=== PATIENT | female | born 1995 | race Caucasian/White ===

== ENCOUNTER 2022-06-19 10:28 | Outpatient (CLI) | payer BC | END 2022-06-19 10:29 | disposition home or self-care (01) | LOC: BICRAD 10:28 | PROVIDERS: ATTEND Family Medicine | DX: M25.512 Pain in left shoulder (principal) ==

== ENCOUNTER 2022-10-31 12:26 | Outpatient (CLI) | payer BC | END 2022-10-31 12:27 | disposition home or self-care (01) | LOC: SCSMRI 12:26 | PROVIDERS: ATTEND Family Medicine | DX: R79.89 Other specified abnormal findings of blood chemistry (principal) | CPT/HCPCS: 70553 ==

== ENCOUNTER 2023-06-24 17:21 | Emergency (ER) | payer BC ==
[2023-06-24 18:06] LABS: #Basophils 0.1 thou/uL (0.0-0.2); #Eosinphils 0.1 thou/uL (0.0-0.7); #Monocytes 0.4 thou/uL (0.11-0.59); #Neutrophils 5.4 thou/uL (1.40-6.50); %Basophils 0.8 % (0.0-1.0); %Eosinophils 0.9 % (0.0-10.0); %Lymphocytes 23.9 % (21.0-51.0); %Neutrophils 69.1 % (42.0-75.0); Hematocrit 39.4 % (36.0-47.0); Hemoglobin 13.2 g/dL (12.0-16.0); Mean Corpuscular HGB CONC 33.5 g/dL (32.0-36.0); Mean Corpuscular Hemoglobin 29.5 pg (27.0-31.0); Mean Corpuscular Volume 87.9 fl (78.0-98.0); Mean Platelet Volume 10.3 fL (7.4-10.4); Platelet Count 280 10x3/uL (130-400); RBC Distribution Width 12.4 % (11.5-14.5); Red Blood Cell (RBC) Count 4.48 mill/uL (4.20-5.40); White Blood Cell (WBC) Count 7.8 10x3/uL (4.8-10.8)
[2023-06-24 18:35] LABS: ALT (SGPT) 10 U/L (8-55); AST (SGOT) 14 U/L (5-34); Albumin 5.2 g/dL (3.5-5.0); Alkaline Phosphatase 88 U/L (40-110); Anion Gap 15 mmol/L (10-20); BUN (Urea Nitrogen) 11 mg/dL (7.0-18.7); Bilirubin, Total 0.4 mg/dL (0.2-1.2); Calc. Creatinine Clearance 0 mL/min (70-130); Calcium 9.5 mg/dL (7.8-10.44); Carbon Dioxide 22 mmol/L (22-29); Chloride 106 mmol/L (98-107); Estimated GFR 97; Globulin 3.1 g/dL (2.4-3.5); Glucose 91 mg/dL (70-105); Lipase 14 U/L (8-78); Potassium 3.5 mmol/L (3.5-5.1); Protein, Total 8.3 g/dL (6.0-8.3); Sodium 139 mmol/L (136-145)
[2023-06-24 18:38] LABS: Troponin I Less than 0.010 ng/mL (< 0.028)
== END 2023-06-24 19:21 | disposition home or self-care (01) ==
LOC: ERS 17:21
DX: R07.89 Other chest pain (principal)
CPT/HCPCS: 71045; 80053; 83690; 83880; 84484; 85025; 85379; 93005

== ENCOUNTER 2023-07-01 10:48 | Emergency (ER) | payer BC ==
[~2023-07-01 10:48] MED LIST: Iopamidol-370 76% 500 ML MDV (1 ML CHARGE) ONE
[2023-07-01] MEDS ORDERED: Morphine 4 MG/ML VIAL ONE ×2 (11:24→13:52)
[2023-07-01] MEDS ORDERED: Ondansetron PF 4 MG/2 ML Vial ONE (11:24)
[2023-07-01 11:57] LABS: #Basophils 0.1 thou/uL (0.0-0.2); #Eosinphils 0.1 thou/uL (0.0-0.7); #Monocytes 0.4 thou/uL (0.11-0.59); #Neutrophils 4.3 thou/uL (1.40-6.50); %Basophils 0.8 % (0.0-1.0); %Eosinophils 1.1 % (0.0-10.0); %Monocytes 5.4 % (0.0-10.0); %Neutrophils 65.5 % (42.0-75.0); Hematocrit 39.7 % (36.0-47.0); Hemoglobin 13.3 g/dL (12.0-16.0); Mean Corpuscular HGB CONC 33.5 g/dL (32.0-36.0); Mean Corpuscular Hemoglobin 29.2 pg (27.0-31.0); Mean Corpuscular Volume 87.3 fl (78.0-98.0); Mean Platelet Volume 10.5 fL (7.4-10.4); Platelet Count 249 10x3/uL (130-400); RBC Distribution Width 12.3 % (11.5-14.5); Red Blood Cell (RBC) Count 4.55 mill/uL (4.20-5.40); White Blood Cell (WBC) Count 6.5 10x3/uL (4.8-10.8)
[2023-07-01 12:10] LABS: BHCG - Serum Negative (NEGATIVE); Pregs Control Background? CLEAR/WHITE (CLR/WHITE); Pregs Control Bar Appear? YES (CONTROL BAR)
[2023-07-01 12:17] LABS: ALT (SGPT) 11 U/L (8-55); AST (SGOT) 14 U/L (5-34); Albumin 5.1 g/dL (3.5-5.0); Alkaline Phosphatase 87 U/L (40-110); Anion Gap 11 mmol/L (10-20); BUN (Urea Nitrogen) 8 mg/dL (7.0-18.7); Bilirubin, Total 0.5 mg/dL (0.2-1.2); Calc. Creatinine Clearance 0 mL/min (70-130); Calcium 9.5 mg/dL (7.8-10.44); Carbon Dioxide 26 mmol/L (22-29); Chloride 103 mmol/L (98-107); Estimated GFR 96; Globulin 2.8 g/dL (2.4-3.5); Glucose 94 mg/dL (70-105); Lipase 152 U/L (8-78); Potassium 3.7 mmol/L (3.5-5.1); Protein, Total 7.9 g/dL (6.0-8.3); Sodium 136 mmol/L (136-145)
[2023-07-01 12:20] LABS: Troponin I Less than 0.010 ng/mL (< 0.028)
== END 2023-07-01 14:34 | disposition home or self-care (01) ==
LOC: ERS 10:48
DX: R07.89 Other chest pain (principal); R10.13 Epigastric pain
CPT/HCPCS: 71275; 74176; 80053; 83690; 84484; 84703; 85025; 93005; 96374; 96375; 96376; J2270; J2405; Q9967